=== PATIENT | female | born 2000 | race Caucasian/White ===

== ENCOUNTER 2019-07-31 20:02 | Emergency (ER) | payer MEDICAID, OTHER ==
[~2019-07-31] VITALS: Ht 165.1 cm; Wt 54.9 kg
--- NOTE | 2019-07-31 20:20 | NUR ---
patient came from home. patient stated she is having anxiety and cannot see her PCP at this time because offices are close. Patient stated she usually takes Xanax for her anxiety and is here to receove medication to help with her anxiety until she can she her PCP.
[2019-07-31] MEDS ORDERED: LORAZEPAM 0.5 MG TABLET PO ONE (20:30)
[2019-07-31] MEDS ORDERED: GABAPENTIN 100 MG CAPSULE PO ONE (20:30)
[2019-07-31] MEDS ORDERED: GABAPENTIN 100 MG CAPSULE ONE (20:40)
[2019-07-31] MEDS ORDERED: LORAZEPAM 1 MG TABLET ONE (20:40)
--- NOTE | 2019-07-31 20:41 | NUR ---
Patient discharged to home in stable conditon. Written and verbal after care instructions given. Patient verbalizes understanding of instructions. Patient self ambulatory with steady gait. Exit care package and personal belongings taken home with the patient at discharge. patient has good understanding of health. patient stated she will follow up with neuorlogy and primary care physician. patient stated she will have a friend take her home.
[2019-07-31 20:43] VITALS: BP 110/74
== END 2019-07-31 20:44 | disposition home or self-care (01) ==
LOC: ER 20:04
DX: F41.9 Anxiety disorder, unspecified (principal); M79.2 Neuralgia and neuritis, unspecified; J45.909 Unspecified asthma, uncomplicated
CPT/HCPCS: A4663